=== PATIENT | female | born 1990 | race Caucasian/White ===

== ENCOUNTER 2019-08-14 11:25 | Emergency (ER) | payer OTHER ==
[~2019-08-14] VITALS: Ht 162.6 cm; Wt 65.8 kg
[2019-08-14] MEDS ORDERED: FLONASE 0.05%50 MCG NASAL (12:23)
[2019-08-14] MEDS ORDERED: TESSALON PERLE100 MG PO (12:23)
[2019-08-14] MEDS ORDERED: SUDOGEST30 MG PO (12:23)
[2019-08-14 13:03] VITALS: BP 120/60
== END 2019-08-14 13:03 | disposition home or self-care (01) ==
LOC: ER 11:25
DX: J06.9 Acute upper respiratory infection, unspecified (principal)

== ENCOUNTER 2020-02-22 17:01 | Emergency (ER) | payer OTHER ==
[~2020-02-22] VITALS: Ht 152.4 cm; Wt 62.6 kg
[~2020-02-22 17:01] MED LIST: FLONASE 0.05%50 MCG NASAL; SUDOGEST30 MG PO; TESSALON PERLE100 MG PO
[2020-02-22 17:58] LABS: ABSOLUTE NEUTROPHILS 9.3 thou/uL (1.4-8.2); BASOPHILS 0.4 % (0.0-2.0); EOSINOPHILS 0.6 % (0.0-3.0); HEMATOCRIT 40.4 % (37.0-47.0); HEMOGLOBIN 14.4 gm/dL (12.0-15.0); LYMPHOCYTES 11.8 % (24.0-44.0); MCH 32.9 pg (26.0-34.0); MCHC 35.6 g/dL (28.0-37.0); MCV 92.5 fL (80.0-100.0); MONOCYTES 5.3 % (1.0-8.0); PLATELET COUNT 450 thou/uL (150-400); POLYS 81.9 % (36.0-66.0); RBC 4.36 mil/uL (4.20-5.00); RDW 12.4 % (10.5-14.5); WBC 11.3 thou/uL (4.0-11.0)
[2020-02-22 18:06] LABS: ANION GAP 11 mmol/L (7-16); BUN 6 mg/dL (7-18); CALCIUM 9.8 mg/dL (8.5-10.1); CHLORIDE 95 mmol/L (98-107); CO2 27 mmol/L (21-32); CREATININE 0.5 mg/dL (0.6-1.0); GLUCOSE 75 mg/dL (74-106); SODIUM 133 mmol/L (136-145)
[2020-02-22 18:12] LABS: ALBUMIN 4.1 g/dL (3.4-5.0); DIRECT BILIRUBIN < 0.1 mg/dL (<0.1-0.2); LIPASE 91 U/L (73-393); SGOT 17 U/L (15-37); SGPT 19 U/L (30-65); TOTAL BILIRUBIN 0.6 mg/dL (0.2-1.0); TOTAL PROTEIN 7.8 g/dL (6.4-8.2)
[2020-02-22 19:06] VITALS: BP 102/55
[2020-02-22 19:24] LABS: URINE BLOOD NEGATIVE (Negative); URINE CLARITY CLEAR; URINE COLOR YELLOW; URINE GLUCOSE-RANDOM* NEGATIVE (Negative); URINE KETONES 3+ (Negative); URINE NITRITE-REFLEX NEGATIVE (Negative); URINE PROTEIN (DIPSTICK) 1+ (Negative); URINE SPECIFIC GRAVITY >= 1.030 (1.005-1.035)
[2020-02-22 19:25] LABS: ICTOTEST (BILI CONFIRMATORY) Negative (Negative); URINE BILIRUBIN NEGATIVE (Negative); URINE LEUKOCYTES-REFLEX 1+ (Negative)
[2020-02-22 19:28] LABS: URINE REDUCING SUBSTANCE NEGATIVE
[2020-02-22 19:34] LABS: SQUAMOUS >10 Many /LPF (0-3); URINE WBC-REFLEX 6-15 Few /HPF (0-5)
[2020-02-22 19:35] LABS: BACTERIA-REFLEX 1-9 Few /HPF (None Seen); CALCIUM OXALATE 4-10 Moderate /LPF (None Seen); CASTS None Seen /LPF (None Seen); URINE RBC None Seen /HPF (0-2)
[2020-02-22] MEDS ORDERED: ZOFRAN ODT4 MG PO (19:49)
[2020-02-22] MEDS ORDERED: POTASSIUM20 PO (19:49)
== END 2020-02-22 20:01 | disposition home or self-care (01) ==
LOC: ER 17:01
PROVIDERS: Emergency Medicine; Physician Assistant
DX: O99.280 Endocrine, nutritional and metabolic diseases complicating pregnancy, unspecified trimester (principal); E87.6 Hypokalemia; O21.8 Other vomiting complicating pregnancy; E86.0 Dehydration; Z3A.01 Less than 8 weeks gestation of pregnancy; Z88.1 Allergy status to other antibiotic agents